=== PATIENT | male | born 1955 | race Two or more races ===

== ENCOUNTER 2017-07-31 19:37 | Inpatient (IN) | payer OTHER ==
[~2017-07-31] VITALS: Ht 175.3 cm; Wt 127.0 kg
[2017-07-31] MEDS ORDERED: VANCOMYCIN 1 GM VIAL ONE (20:23)
[2017-07-31] MEDS ORDERED: PIPERACILLIN /TAZOBACTAM 3.375 G VIAL IV ONE (20:23)
--- NOTE | 2017-07-31 20:25 | NUR ---
STARTED A SALINE LOCK ON THE LAC G20, BLOOD DRAWN AND SENT TO LAB.
--- NOTE | 2017-07-31 20:25 | NUR ---
TO BED 15 A 61 YO MALE PAIENT BBRA 102 FROM HOME; SOB, LOWER LEG SWELLING. PATIENT IS AAOX3, BREATHING EVEN AND UNLABORED. SATTING 88% ON ROOM AIR, PLACED PATIENT ON O2 CANNULA AT 4LPM AT THIS TIME WITH O2 SATURATION GOING UP TO 93-96%. KEPT HOB ELEVATED. PLACED PATIENT ON CARDIAC AND VS MONITORING. GOWNED. COMFORT MEASURES RENDERED.
[2017-07-31 20:26] LABS: BASOPHILS # (AUTO) 0.4 /CMM (0.0-0.2); BASOPHILS % (AUTO) 3.4 % (0.0-2.0); EOSINOPHILS # (AUTO) 0.1 /CMM (0.0-0.7); EOSINOPHILS % (AUTO) 0.6 % (0.0-6.0); HEMATOCRIT 53 % (39-51); LYMPHOCYTES # (AUTO) 1.2 /CMM (0.8-4.8); LYMPHOCYTES % (AUTO) 10.7 % (20.0-44.0); MEAN CORPUSCULAR HEMOGLOBIN 32 PG (26.0-33.0); MEAN CORPUSCULAR HGB CONC 34 g/dl (31.0-36.0); MEAN CORPUSCULAR VOLUME 95 fL (80-96); MONOCYTES # (AUTO) 0.9 /CMM (0.1-1.30); MONOCYTES % (AUTO) 7.5 % (2.0-12.0); NEUTROPHILS # (AUTO) 8.9 /CMM (1.8-8.9); NEUTROPHILS % (AUTO) 77.8 % (43.0-81.0); PLATELET COUNT (AUTO) 152 /CMM (150-450); RDW COEFFICIENT OF VARIATION 14.5 (11.5-15.0); RED BLOOD CELL COUNT(AUTO) 5.55 MIL/uL (4.5-6.0); WHITE BLOOD COUNT (AUTO) 11.5 K/uL (4.3-11.0)
[2017-07-31] MEDS ORDERED: PIPERACILLIN /TAZOBACTAM 3.375 G in IV D5W 50 ML IV ONE (20:30)
[2017-07-31] MEDS ORDERED: VANCOMYCIN 1 GM in IV D5W 250 ML IV ONE (20:30)
--- NOTE | 2017-07-31 20:36 | NUR ---
ONGOING DUPLEX VENOUS AT BEDSIDE.
[2017-07-31 20:43] LABS: CALCIUM, SERUM 8.5 mg/dL (8.5-10.1); POTASSIUM 4.7 mmol/L (3.5-5.1)
[2017-07-31 20:44] LABS: INR 1.3 (0.87-1.13); PROTHROMBIN TIME 13.5 SECS (9.5-12.7)
[2017-07-31 21:00] LABS: ALBUMIN 3.2 g/dL (3.4-5.0); BILIRUBIN,DIRECT 0.2 mg/dL (0.0-0.2); BILIRUBIN,TOTAL 0.6 mg/dL (0.2-1.0); TOTAL PROTEIN, SERUM 7.1 g/dL (6.4-8.2); TROPONIN I 0.925 ng/mL (0.00-0.056)
[2017-07-31] MEDS ORDERED: ASPIRIN 81 MG TAB.CHEW PO ONE (21:00)
[2017-07-31] MEDS ORDERED: ASPIRIN EC 81 MG TABLET.DR PO ONE (21:09)
--- NOTE | 2017-07-31 21:09 | NUR ---
DR.RUTHERFORD CELESTINA HEAD WRESTLING COACH
--- NOTE | 2017-07-31 21:20 | NUR ---
CALLED NURSING SUP. FOR TELE BED
[2017-07-31] MEDS ORDERED: NITROGLYCERIN PACKET 1 GM PACKET TD ONE (21:30)
[2017-07-31] MEDS ORDERED: FUROSEMIDE 40 MG/4 ML VIAL IV ONE (21:30)
[2017-07-31] MEDS ORDERED: NITROGLYCERIN PACKET 1 GM PACKET ONE (21:34)
[2017-07-31] MEDS ORDERED: FUROSEMIDE 40 MG/4 ML VIAL ONE (21:34)
[2017-07-31] MEDS ORDERED: MORPHINE SULFATE INJ 2 MG/ML DISP.SYRIN IV PRN (22:00)
[2017-07-31] MEDS ORDERED: MAG HYDROX/AL HYDROX/SIMETH 30 ML UDC PO PRN (22:00)
[2017-07-31] MEDS ORDERED: HYDROCODONE/APAP 5/325MG 1 EACH TABLET PO PRN (22:00)
[2017-07-31] MEDS ORDERED: ZOLPIDEM TARTRATE 5 MG TABLET PO PRN (22:00)
[2017-07-31] MEDS ORDERED: ACETAMINOPHEN 325 MG TABLET PO PRN (22:00)
[2017-07-31] MEDS ORDERED: MAGNESIUM HYDROXIDE 30 ML UDC PO PRN (22:00)
[2017-07-31] MEDS ORDERED: ONDANSETRON HCL/PF 4 MG/2 ML VIAL IVP PRN (22:00)
[2017-07-31] MEDS ORDERED: ENOXAPARIN SODIUM 40 MG/0.4 ML DISP.SYRIN SQ ONE (22:03)
[2017-07-31] MEDS: ENOXAPARIN SODIUM 40 MG/0.4 ML DISP.SYRIN SQ SCH (22:10)
--- NOTE | 2017-07-31 22:10 | NUR ---
LOVENOX GIVEN TO LLQ ABDOMEN; VERIFIED WITH DR GAN LOVENOX DOSE WITH PATIENT'S CREATININE LEVEL OF 2, AND HE SAID THAT "IT'S FINE. GIVE IT."
--- NOTE | 2017-07-31 22:43 | NUR ---
DR DRAPER AT BEDSIDE TO EVALUATE PATIENT.
--- NOTE | 2017-07-31 23:39 | NUR ---
REPORT GIVEN TO AKI LORENZO FOR ADMISSION AND CHINEDU.
[2017-08-01] VITALS (21 sets, daily range): BP systolic 84–126; BP diastolic 46–75
--- NOTE | 2017-08-01 00:05 | NUR ---
TRANSFERRED PATIENT TO TELE BED 315-2 VIA ALS PROTOCOL, NO INCIDENT NOTED. ENDORSED CARE TO AKI LORENZO.
--- NOTE | 2017-08-01 00:15 | NUR ---
BARN OPERATOR INITIAL NOTE PT RECEIVED FROM ED A/O X3 AND ABLE TO VERBALIZE NEEDS. SAFELY AMBULATED TO BED IN ROOM 115-2. ON 4L OF O2 AND SATURATING 94%. NOTED WITH SLIGHT SOB WHEN TRANSFERRING TO BED. DENIES CHEST PAIN OR DISCOMFORT AT THIS TIME. BREATHING EVEN AND UNLABORED. IV L AC #20 CLEAN, DRY, PATENT AND FLUSHING WELL. TELE- AFIB 107. AFEBRILE. ORIENTED TO TALIA AND UNIT. AUSCULTATED HEART, LUNG AND BOWEL SOUNDS. NOTED WITH BLE REDNESS AND EDEMA. HOB ELEVATED. CALL LIGHT WITHIN REACH. WILL CONTINUE TO MONITOR.
[2017-08-01 05:11] LABS: CALCIUM, SERUM 8.8 mg/dL (8.5-10.1); CREATININE 1.7 mg/dL (0.6-1.3); MAGNESIUM 2.2 mg/dL (1.8-2.4); PHOSPHORUS 6.7 mg/dL (2.5-4.9); POTASSIUM 4.7 mmol/L (3.5-5.1)
[2017-08-01 05:22] LABS: BASOPHILS % (AUTO) 0.1 % (0.0-2.0); EOSINOPHILS # (AUTO) 0.1 /CMM (0.0-0.7); EOSINOPHILS % (AUTO) 0.7 % (0.0-6.0); HEMATOCRIT 57 % (39-51); HEMOGLOBIN 18.6 g/dL (13.5-17.5); LYMPHOCYTES # (AUTO) 1.1 /CMM (0.8-4.8); LYMPHOCYTES % (AUTO) 9.6 % (20.0-44.0); MEAN CORPUSCULAR HEMOGLOBIN 32 PG (26.0-33.0); MEAN CORPUSCULAR HGB CONC 33 g/dl (31.0-36.0); MEAN CORPUSCULAR VOLUME 98 fL (80-96); MONOCYTES # (AUTO) 0.7 /CMM (0.1-1.30); MONOCYTES % (AUTO) 6.5 % (2.0-12.0); NEUTROPHILS # (AUTO) 9.2 /CMM (1.8-8.9); NEUTROPHILS % (AUTO) 83.1 % (43.0-81.0); PLATELET COUNT (AUTO) 153 /CMM (150-450); WHITE BLOOD COUNT (AUTO) 11.1 K/uL (4.3-11.0)
--- NOTE | 2017-08-01 07:45 | NUR ---
RELIEF DRILLER NOTES PT. IS A&OX3. TELE MONITOR READING PT. IS IN UNCONTROLLED A-FIB 135 BPM. PT. IS BREATHING LABORED ON OXYGEN AT 4L/MIN VIA NASAL CANNULA. NO S/S OF ACUTE DISTRESS. IV ACCESS ON LEFT ANTECUBITAL SITE INTACT AND PATENT. PT. HAS EDEMA PITTING IN BILATERAL LOWER EXTREMITIES. BED IS IN LOWEST, AND LOCKED POSITION. 2 SIDE RAILS UP, AND INSTRUCTED PT. TO USE CALL LIGHT FOR ASSISTANCE. ALL NEEDS MET. WILL CONTINUE TO ASSESS AND MONITOR.
[2017-08-01] MEDS ORDERED: ATOR20TA PO (08:10)
[2017-08-01] MEDS ORDERED: LISI-607 PO (08:10)
[2017-08-01] MEDS ORDERED: RIVA10TA PO (08:10)
[2017-08-01] MEDS ORDERED: FURO40TA5 PO (08:10)
[2017-08-01] MEDS ORDERED: POTA10CA68 PO (08:10)
[2017-08-01] MEDS ORDERED: METO100T14 PO (08:10)
[2017-08-01] MEDS ORDERED: METF500T4 PO (08:10)
--- NOTE | 2017-08-01 08:50 | NUR ---
RN NOTES PER MEDICAL INTERN PT.'S OXYGEN SATURATION WAS LOW. ASSESSED PT.'S OXYGENATION WAS 90%. PT.'S CONDITION CHANGED DUE TO DIFFICULTY WAKING UP, WITH GARBLED SPEECH. PT. WAS ONLY RESPONSIVE TO NAME, AND UNABLE TO VERBALIZE PLACE, AND TIME. CHARGE NURSE WAS MADE AWARE OF CHANGE IN PT.'S CONDITION. PT. IS CONTINUE TO BREATH ON OXYGEN AT 4L/MIN VIA NASAL CANNULA. WILL CONTINUE TO ASSESS AND MONITOR, AND REPORT TO MD.
[2017-08-01] MEDS ORDERED: FUROSEMIDE 40 MG/4 ML VIAL IV SCH (09:00)
--- NOTE | 2017-08-01 09:00 | NUR ---
RN NOTES REASSESSED PT. WAS ON HIS SIDE ASLEEP WITH LEFT ARM OVER THE RIGHT RAIL. PT. WAS WOKEN UP WITH DIFFICULTY AND RESPONDED TO NAME, UNABLE TO ANSWER QUESTIONS TO PLACE AND TIME. PT. WAS SEEN AND EXAMINED BY MD, NEW ORDERS GIVEN, STAT ABG'S. STAT CHEST X RAY, AND BUMEX IVP, AND DRIP.
--- NOTE | 2017-08-01 09:10 | NUR ---
RN NOTES PT.'S OXYGEN SATURATION WAS DECREASING TO 84%, WITH SOB, AND DECREASED LOC. RESPIRATORY WAS CONTACTED TO ASSESS PT.'S CONDITION.
--- NOTE | 2017-08-01 09:11 | NUR ---
RN NOTES RAPID RESPONSE CALLED. PT. OXYGEN SATURATION WAS LOW. PT.'S CONDITION AND LOC DECREASED.
--- NOTE | 2017-08-01 09:13 | NUR ---
RN NOTES BLOOD SUGAR CHECK 157 MG/DL.
--- NOTE | 2017-08-01 09:15 | NUR ---
RN NOTES RAPID RESPONSE ARRIVED. ABG' STAT COMPLETED.
--- NOTE | 2017-08-01 09:17 | NUR ---
RN NOTES PT. IS ON OXYGEN 2L/MIN SATURATION IS 96%.
[2017-08-01 09:30] LABS: ABG BASE EXCESS 7.8 mmol/L; ABG OXYGEN SATURATION 88.6 % (92.0-98.5); ABG PCO2 130.2 mmHg (35.0-45.0); ABG PH 7.147 (7.350-7.450); ABG PO2 63.7 mmHg (75.0-100.0); AaDO2 19.6 mmHg; COHb 6.8 % (0.5-1.5); MetHb 0.4 % (0.0-1.5); O2Hb 82.2 % (94.0-97.0); SITE, ABG Right Radial; VENT MODE, BG NASAL CANNULA
[2017-08-01] MEDS ORDERED: BUMETANIDE INJ 0.25 MG/ML VIAL IV ONE (09:30)
[2017-08-01] MEDS ORDERED: BUMETANIDE INJ 1 MG in IV NS 0.9% 40 ML IV ONE (09:30)
--- NOTE | 2017-08-01 09:40 | NUR ---
RN NOTES PT. WAS PLACED ON A BIPAP BY RESPIRATORY THERAPIST.
[2017-08-01] MEDS: ASPIRIN 325 MG TABLET PO SCH (09:45)
--- NOTE | 2017-08-01 09:47 | NUR ---
WELL POINT PUMPING SUPERVISOR/NOTES PT. IS ON A BIPAP MACHINE PER MD ORDERS ON A MED/SURG UNIT. CHARGE NURSE IS AWARE, AND EMERGENCY DEPARTMENT MANAGER IS AWARE.
--- NOTE | 2017-08-01 09:50 | NUR ---
RN NOTES BIPAP SETTINGS, IPAP 18, EPAP 5, RR 14 MIN., FI02 25%, NORMAL 02 SATURATION BETWEEN 88%-94%.
[2017-08-01] MEDS ORDERED: IPRATROPIUM NEB FS 0.5 MG/2.5 ML AMPUL.NEB NEB PRN (10:00)
[2017-08-01] MEDS ORDERED: methylPREDNISolone SOD SUCC 125 MG/2ML VIAL IV SCH (10:00)
[2017-08-01] MEDS ORDERED: LEVALBUTEROL HCL NEB 1.25 MG/0.5 ML VIAL.NEB NEB PRN (10:00)
--- NOTE | 2017-08-01 10:00 | NUR ---
RN NOTES YUSUF CATHETER WAS INSERTED WITHOUT COMPLICATIONS. PT. TOLERATED PROCEDURE WELL.
--- NOTE | 2017-08-01 10:02 | NUR ---
RAPID RESPONSE CALLED ON PT IN 315-2. ABG DONE. HYPERCAPNIC RESP. ACIDOSIS NOTED. PER DR. DOMINGUEZ, RESCUE BIPAP PLACED ON PT. PT IS AWAKE AND ALERT WITH SLIGHT LETHARGIC EPISODES. BETINA LORENZO IS AWARE OF BIPAP ON PT IN A TELE FLOOR, WELL NELLIE RICCI, DR. DOMINGUEZ AND TELE STERILE PROCESS TECH. Addendum: 08/01/17 at 1004 by ZEFERINO GOODRICH RT Amended: Links added.
[2017-08-01] MEDS ORDERED: ALBUTEROL FS 2.5 MG/0.5 ML VIAL.NEB NEB PRN (11:00)
[2017-08-01] MEDS: PIPERACILLIN /TAZOBACTAM 3.375 G in IV D5W 50 ML IV SCH ×2 (11:57→18:52)
--- NOTE | 2017-08-01 14:15 | NUR ---
RN NOTES YUSUF CATHETER OUTPUT 550 CC OF CLEAR, AND YELLOW URINE.
--- NOTE | 2017-08-01 14:15 | NUR ---
RN NOTES REPORT WAS GIVEN TO BJ REINOSO IN ICU.
--- NOTE | 2017-08-01 14:40 | NUR ---
TOOL MARKER NOTES RECEIVED PATIENT AOX3 , CURRENTLY ON BIPAP FIO2 25% R 14 18/5 SPO2 OF 90% , AFIB 115 ON BEDSIDE MONITOR , FC DRAINING WELL VIA GRAVITY WITH CLEAR YELLOW URINE , IV OF L AC # 20 PATENT AND INTACT SL , ALL NEEDS ATTENDED , BED ON LOW AND LOCKED POSITION , SIDE RAILS X2 , CALL LIGHT WITHIN REACH , HOB @ 35 WILL CONTINUE TO MONITOR
--- NOTE | 2017-08-01 14:49 | NUR ---
RN NOTES TRANSFER TO ICU REPORT WAS GIVEN TO BJ REINOSO. PLACED PT. ON TELE MONITOR, AND OXYGEN. PT. WAS TAKEN TO ICU WITH RESPIRATORY THERAPIST, AND FIRE FIGHTING EQUIPMENT SPECIALIST WITHOUT COMPLICATIONS.
--- NOTE | 2017-08-01 14:50 | NUR ---
ANVIL SEATING PRESS OPERATOR NOTES ASKED BETINA LORENZO TO CALL PRIMARY PHYSICIAN TO REVIEW MEDICATION RECON , RN AWARE
[2017-08-01] MEDS: FUROSEMIDE 40 MG/4 ML VIAL IV SCH ×2 (15:21→23:17)
[2017-08-01] MEDS: METOPROLOL TARTRATE 50 MG TABLET PO SCH ×2 (15:22→23:18)
[2017-08-01] MEDS: methylPREDNISolone SOD SUCC 125 MG/2ML VIAL IV SCH ×2 (15:38→21:05)
--- NOTE | 2017-08-01 16:00 | NUR ---
MACHINE HEEL SPRAYER NOTES VERIFIED WITH DR SKINNER IF LASIX 60MG OK TO GIVE PT RECEIVED BUMEX IVP AND DRIP @ 3 WEST PER MD OK TO GIVE LASIX ORDERED , F/U HOME MEDS TO REVIEW AND CONTINUE , AWARE
[2017-08-01 17:26] LABS: ABG OXYGEN SATURATION 90.7 % (92.0-98.5); ABG PCO2 82.8 mmHg (35.0-45.0); ABG PH 7.314 (7.350-7.450); ABG PO2 60.8 mmHg (75.0-100.0); AaDO2 55.8 mmHg; COHb 5.4 % (0.5-1.5); MetHb 0.4 % (0.0-1.5); O2Hb 85.4 % (94.0-97.0); PEEP,BG 5 cm H2O; SITE, ABG Right Radial
[2017-08-01] MEDS: ALBUTEROL FS 2.5 MG/0.5 ML VIAL.NEB NEB SCH ×2 (17:27→22:50)
[2017-08-01] MEDS: IPRATROPIUM NEB FS 0.5 MG/2.5 ML AMPUL.NEB NEB SCH ×2 (17:27→22:49)
--- NOTE | 2017-08-01 17:30 | NUR ---
LIMOUSINE AND HEARSE UPHOLSTERER NOTES SEEN AND EVALUATED BY DR CORONA , DISCUSSED HISTORY , DIAGNOSIS , CURRENT BIPAP SETTINGS AND CHIEF COMPLAIN LABS , ABG ON NASAL CANNULA , PENDING CHEST XRAY RESULT , PT AFEBRILE WITH STABLE BP , MD AWARE , AWAITING FOR ORDERS
[2017-08-01] MEDS: GABAPENTIN 100 MG CAPSULE PO SCH (17:46)
--- NOTE | 2017-08-01 20:00 | NUR ---
Received patient A/O X 3.VS stable.Afib controlled 80's-90's.Respiration even and unlabored with sob on exertion.Desat to 88%.On BIPAP rate 14,18/5 and FIO2 30%.Clear breath sounds on auscultation.HOB elevated.Bilateral lower extremities swollen and both elevated on pillows.Turned and repositioned to Comfort.FC to gravity with moderate clear yellow urine.Denies pain.Safety measures implemented.Call light within easy reach.
[2017-08-01] MEDS: ATORVASTATIN 40 MG TABLET PO SCH (22:08)
[2017-08-01] MEDS: ENOXAPARIN SODIUM 40 MG/0.4 ML DISP.SYRIN SQ SCH (22:09)
[2017-08-02] VITALS (34 sets, daily range): BP systolic 94–136; BP diastolic 27–75
--- NOTE | 2017-08-02 | NUR ---
Patient resting desat to 78%.No acute distress noted.RT,Bakari increased FIO2 to 40 %. Continue to monitor.
[2017-08-02] MEDS: PIPERACILLIN /TAZOBACTAM 3.375 G in IV D5W 50 ML IV SCH ×5 (00:02→23:56)
[2017-08-02 05:42] LABS: PHOSPHORUS 5.6 mg/dL (2.5-4.9)
[2017-08-02 05:43] LABS: CALCIUM, SERUM 8.6 mg/dL (8.5-10.1); CREATININE 1.5 mg/dL (0.6-1.3); POTASSIUM 4.6 mmol/L (3.5-5.1)
--- NOTE | 2017-08-02 06:15 | NUR ---
Patient resting VS stable.Afib 102-105.O2 saturation fluactuating from 88%-93% while on Bipap. No acute distress noted.Bed bath rendered and complete linens changed.all need met.Safety measures maintained.Call light at bedside.
--- NOTE | 2017-08-02 07:10 | NUR ---
DIAGNOSTICS TECH NOTES RECEIVED PATIENT AOX3 , CURRENTLY ON BIPAP FIO2 40% R 14 18/ SPO2 OF 95% , AFIB 108 ON BEDSIDE MONITOR , FC DRAINING WELL VIA GRAVITY WITH CLEAR YELLOW URINE , IV OF L AC # 20 L WRIST # 20 PATENT AND INTACT WITH NS @ TKO , ALL NEEDS ATTENDED , BED ON LOW AND LOCKED POSITION , SIDE RAILS X2 , CALL LIGHT WITHIN REACH , HOB @ 35 WILL CONTINUE TO MONITOR
[2017-08-02] MEDS: ALBUTEROL FS 2.5 MG/0.5 ML VIAL.NEB NEB SCH ×3 (07:37→23:30)
[2017-08-02] MEDS: IPRATROPIUM NEB FS 0.5 MG/2.5 ML AMPUL.NEB NEB SCH ×3 (07:38→23:29)
--- NOTE | 2017-08-02 07:43 | NUR ---
RT RECEIVED PT ON BIPAP, PLACED PT ON N/C DUE TO MD WEANING ORDERS, AMBUBAG AT BEDSIDE, PLACED ON 4LPM, PT STABLE WILL MONITOR CLOSELY Addendum: 08/02/17 at 1628 by FERMIN RICE RT Amended: Links added.
[2017-08-02] MEDS: FUROSEMIDE 40 MG/4 ML VIAL IV SCH ×3 (07:48→17:59)
--- NOTE | 2017-08-02 08:05 | NUR ---
RT PLACED PT ON NC WITH 4 LPM PER MD ORDER. WILL MONITOR THE PATIENT CLOSELY FOR ANY CHANGE OF CONDITION. BJ ELLER NOTIFIED AND AWARE.
--- NOTE | 2017-08-02 08:13 | NUR ---
CAPSULE FILLING MACHINE OPERATOR NOTES LASIX 60 MG NON ADMIN , DR SKINNER CHANGED THE DOSE TO 40MG .
[2017-08-02] MEDS: GABAPENTIN 100 MG CAPSULE PO SCH ×3 (08:14→18:00)
[2017-08-02] MEDS: methylPREDNISolone SOD SUCC 125 MG/2ML VIAL IV SCH ×3 (08:14→17:59)
[2017-08-02] MEDS: ASPIRIN 325 MG TABLET PO SCH (08:15)
[2017-08-02] MEDS: METOPROLOL TARTRATE 50 MG TABLET PO SCH ×2 (08:15→21:25)
--- NOTE | 2017-08-02 08:44 | NUR ---
BABYSITTER NOTES SEEN AND EVALUATED BY DR CORONA , DISCUSSED LABS , CHEST XRAY , PT OFF BIPAP SINCE 0800 , PENDING ABG RESULT , AFIB UNCONTROLLED 118 , URINE OUTPUT TOTAL OF 2600ML , AWARE
--- NOTE | 2017-08-02 09:00 | NUR ---
GLOVE PRESSER NOTES RELAYED ABG RESULT TO DR CORONA , PER MD REPEAT ABG AFTER 2 HOURS .
[2017-08-02 09:12] LABS: ABG BASE EXCESS 10.7 mmol/L; ABG OXYGEN SATURATION 89.2 % (92.0-98.5); ABG PCO2 81.5 mmHg (35.0-45.0); ABG PH 7.325 (7.350-7.450); ABG PO2 60.3 mmHg (75.0-100.0); AaDO2 101.8 mmHg; COHb 3.1 % (0.5-1.5); MetHb 0.5 % (0.0-1.5); SITE, ABG Right Radial; VENT MODE, BG N/C 36%
--- NOTE | 2017-08-02 11:30 | NUR ---
PUBLICITY CONSULTANT NOTES SEEN AND EVALUATED BY DR DOMINGUEZ , DISCUSSED LABS , CHEST XRAY AND ABG RESULT , CURRENTLY OFF BIPAP , PT ON 4LPM NC SPO2 OF 92% WITH NO SIGNS OF DISTRESS , AOX3 , AFEBRILE , V/S STABLE , PT COMPLAINS THAT HIS ABDOMEN IS GETTING BIGGER , PER MD ORDER ABDOMINAL KUB , ORDERS CARRIED OUT
[2017-08-02 11:51] LABS: ABG BASE EXCESS 10.6 mmol/L; ABG PCO2 93.8 mmHg (35.0-45.0); ABG PH 7.279 (7.350-7.450); ABG PO2 75.9 mmHg (75.0-100.0); COHb 2.3 % (0.5-1.5); MetHb 0.6 % (0.0-1.5); O2Hb 90.3 % (94.0-97.0); SITE, ABG Right Radial; VENT MODE, BG N/C
--- NOTE | 2017-08-02 11:54 | NUR ---
RANGE RIDER NOTES RELAYED ABG RESULT TO DR CORONA , ORDERED TO DECREASE NC FROM 4LPM TO 2LPM AND REPEAT ABG @ 1500 , PLACE PT ON BIPAP IF AMS / DISTRESS / ORDERS CARRIED OUT
--- NOTE | 2017-08-02 11:56 | NUR ---
RT ABG DONE PER MD ORDER. RESULTS SHOWN TO RAFITA LORENZO. PLACED PT ON 2LPM VIA N/C PER MD ORDER. WILL CONTINUE TO MONITOR THE PATIENT CLOSELY.
--- NOTE | 2017-08-02 14:00 | NUR ---
CHILD CAREGIVER PRIVATE HOME NOTES RT RELAYED ABG RESULT TO DR CORONA , ORDERED TO PLACE PT ON BIPAP R 12 20/5 TITRATE FIO2 TO KEEP SPO2 90-92% AND ABG AFTER 2 HOURS . ORDERS CARRIED OUT
[2017-08-02 15:48] LABS: ABG BASE EXCESS 10.4 mmol/L; ABG OXYGEN SATURATION 92.4 % (92.0-98.5); ABG PCO2 104.8 mmHg (35.0-45.0); ABG PH 7.241 (7.350-7.450); ABG PO2 72.8 mmHg (75.0-100.0); AaDO2 3.2 mmHg; COHb 2.6 % (0.5-1.5); MetHb 0.5 % (0.0-1.5); O2Hb 89.5 % (94.0-97.0); SITE, ABG Right Radial; VENT MODE, BG NC 28%
--- NOTE | 2017-08-02 15:57 | NUR ---
RT ABG RESULTS SHOWN TO DR. CORONA, AT THIS TIME PT WAS PLACED ON BIBAP, WITH SETTINGS OF 20/5 BACKUP RATE 12, FIO2 30%, PER MD ORDERS. NO DISTRESS NOTED AT THIS TIME, RN NOTIFIED AND AWARE OF THESE CHANGES Addendum: 08/02/17 at 1600 by FERMIN RICE RT Amended: Links added.
[2017-08-02] MEDS: Z GUARD REMEDY 2 OZ OINT TP PRN (18:00)
[2017-08-02 18:14] LABS: ABG BASE EXCESS 12.7 mmol/L; ABG OXYGEN SATURATION 89.2 % (92.0-98.5); ABG PCO2 78.3 mmHg (35.0-45.0); ABG PH 7.358 (7.350-7.450); ABG PO2 57.7 mmHg (75.0-100.0); AaDO2 100.8 mmHg; COHb 2.2 % (0.5-1.5); MetHb 0.6 % (0.0-1.5); O2Hb 86.7 % (94.0-97.0); SITE, ABG Right Radial; VENT MODE, BG S/T 20/5 BUR12 35%
--- NOTE | 2017-08-02 18:15 | NUR ---
BLENDING OPERATOR NOTES RELAYED ABG RESULT WITH DR CORONA VIA BIPAP WITH SETTINGS OF R 12 , FIO2 30% 20/ 5 PER MD NO CHANGE , CONTINUE BIPAP AND CHECK ABG REJI AM WITH BIPAP ,
--- NOTE | 2017-08-02 18:42 | NUR ---
RT INCREASED HIS FIO2 TO 35% DUE TO DESATURATION, IN THE LOW 78-82%. PT IS AWAKE, ALERT, AND VERBALIZES HIS NEEDS. PT STATES NOT HAVING ANY DISTRESS AT THIS TIME, NOTIFIED BJ REINOSO Addendum: 08/02/17 at 1845 by FERMIN RICE RT Amended: Links added.
--- NOTE | 2017-08-02 19:30 | NUR ---
Received patient asleep easily awakened desat to 87%.RT,DEBBI at bedside and increased FIO2 to 50%. SPO2 went up to 91%.No respiratory distress noted.Respiration even and unlabored.VS stable.A-fib 102-105. FC draining clear yellow urine.Both lower extremities red and swollen kept elevated on pillows.Continue monitoring.
[2017-08-02] MEDS: ATORVASTATIN 40 MG TABLET PO SCH (21:24)
[2017-08-02] MEDS: ENOXAPARIN SODIUM 40 MG/0.4 ML DISP.SYRIN SQ SCH (21:26)
[2017-08-03] VITALS (25 sets, daily range): BP systolic 95–139; BP diastolic 50–81
[2017-08-03] MEDS: PIPERACILLIN /TAZOBACTAM 3.375 G in IV D5W 50 ML IV SCH ×4 (05:17→23:40)
[2017-08-03 05:23] LABS: BASOPHILS % (AUTO) 0.2 % (0.0-2.0); HEMATOCRIT 51 % (39-51); HEMOGLOBIN 17.1 g/dL (13.5-17.5); LYMPHOCYTES # (AUTO) 0.4 /CMM (0.8-4.8); LYMPHOCYTES % (AUTO) 3.5 % (20.0-44.0); MEAN CORPUSCULAR HEMOGLOBIN 33 PG (26.0-33.0); MEAN CORPUSCULAR HGB CONC 34 g/dl (31.0-36.0); MEAN CORPUSCULAR VOLUME 96 fL (80-96); MONOCYTES # (AUTO) 0.7 /CMM (0.1-1.30); MONOCYTES % (AUTO) 5.6 % (2.0-12.0); NEUTROPHILS # (AUTO) 11.2 /CMM (1.8-8.9); NEUTROPHILS % (AUTO) 90.7 % (43.0-81.0); PLATELET COUNT (AUTO) 133 /CMM (150-450); RDW COEFFICIENT OF VARIATION 13.9 (11.5-15.0); RED BLOOD CELL COUNT(AUTO) 5.27 MIL/uL (4.5-6.0); WHITE BLOOD COUNT (AUTO) 12.3 K/uL (4.3-11.0)
[2017-08-03 06:01] LABS: CALCIUM, SERUM 8.4 mg/dL (8.5-10.1); CREATININE 1.4 mg/dL (0.6-1.3); MAGNESIUM 1.7 mg/dL (1.8-2.4); PHOSPHORUS 3.9 mg/dL (2.5-4.9); POTASSIUM 4.9 mmol/L (3.5-5.1)
--- NOTE | 2017-08-03 06:48 | NUR ---
Patient resting verbalized feeling much better.All needs met.VS remains stable.Bipap now at 40% FIO2 saturation 90%-97% .No acute distress noted all throughout the night.
--- NOTE | 2017-08-03 07:12 | NUR ---
RN INITIAL NOTES: REC'D PT AWAKE ON BED, NO IN ANY DISTRESS, A/O X 4, DENIES ANY PAIN/DISCOMFORT. ON BIPAP, SATING AT 96%. ON TELEMONITOR, NOTED UNCONTROLLED/CONTROLLED AFIB. HAS 2 IV LINE ACCESS - L AC G20, SL PATENT & INTACT W/ NO S/SX OF INFECTION/INFILTRATION NOTED; L WRIST G20, SL NOT FLUSHING WELL, REMOVED. HAS FC PATENT & INTACT. PROVIDED COMFORT & SAFETY MEASURES. BED KEPT LOW & IN LOCKED POS. CALL LIGHT PLACED W/IN REACH. WILL CONTINUE TO MONITOR AND ATTEND PT NEEDS.
--- NOTE | 2017-08-03 08:15 | NUR ---
RT NOTE: LATE ENTRY-ALERT PATIENT OFF BIPAP WITH NO SOB NOTED. WILL CONTINUE TO MONITOR.
--- NOTE | 2017-08-03 08:30 | NUR ---
RN NOTES: PT SEEN & EXAMINED BY DR. CORONA WHILE OFF BIPAP.
[2017-08-03] MEDS: ALBUTEROL FS 2.5 MG/0.5 ML VIAL.NEB NEB SCH ×3 (08:31→23:26)
[2017-08-03] MEDS: IPRATROPIUM NEB FS 0.5 MG/2.5 ML AMPUL.NEB NEB SCH ×3 (08:31→23:25)
[2017-08-03] MEDS: FUROSEMIDE 40 MG/4 ML VIAL IV SCH ×2 (08:40→17:16)
[2017-08-03] MEDS: methylPREDNISolone SOD SUCC 125 MG/2ML VIAL IV SCH ×3 (08:41→17:16)
[2017-08-03] MEDS: ASPIRIN 325 MG TABLET PO SCH (08:41)
[2017-08-03] MEDS: GABAPENTIN 100 MG CAPSULE PO SCH ×3 (08:41→17:17)
[2017-08-03] MEDS: Z GUARD REMEDY 2 OZ OINT TP PRN (08:42)
[2017-08-03] MEDS: METOPROLOL TARTRATE 50 MG TABLET PO SCH ×2 (08:44→17:17)
--- NOTE | 2017-08-03 09:15 | NUR ---
RN NOTES: PT SEEN & EXAMINED BY DR. DOMINGUEZ.
[2017-08-03 09:50] LABS: ABG OXYGEN SATURATION 89.4 % (92.0-98.5); ABG PCO2 70.4 mmHg (35.0-45.0); ABG PH 7.395 (7.350-7.450); ABG PO2 59.9 mmHg (75.0-100.0); AaDO2 56.7 mmHg; COHb 1.4 % (0.5-1.5); MetHb 0.4 % (0.0-1.5); O2Hb 87.8 % (94.0-97.0); SITE, ABG Right Radial; VENT MODE, BG 2L NC
--- NOTE | 2017-08-03 13:00 | NUR ---
RN NOTES: DR. CORONA SEEN & EXAMINED AGAIN THE PT WHILE ON O2 AT NC 2LPM, ORDERED TO DO ANOTHER ABG AT 2PM. RT MADE AWARE. 1430h ABG RESULTS SEEN BY DR. CORONA W/ ORDERS TO TRANSFER PT OUT OF ICU TO [facility] STATUS. AWAITING FOR BED. PT AND AWARE.
[2017-08-03] MEDS: Magnesium 1GM/D5W 100ML PREMIX 100 ML IV SCH ×2 (13:34→14:31)
[2017-08-03 14:33] LABS: ABG BASE EXCESS 13.3 mmol/L; ABG OXYGEN SATURATION 91.8 % (92.0-98.5); ABG PCO2 70.4 mmHg (35.0-45.0); ABG PH 7.398 (7.350-7.450); ABG PO2 65.7 mmHg (75.0-100.0); AaDO2 50.9 mmHg; COHb 1.1 % (0.5-1.5); MetHb 0.5 % (0.0-1.5); O2Hb 90.3 % (94.0-97.0); SITE, ABG Right Radial; VENT MODE, BG NASAL CANNULA
--- NOTE | 2017-08-03 18:30 | NUR ---
CITY RECORDER NOTES: PT TRANSFERRED OUT OF ICU VIA WHEELCHAIR (VIA ACLS PROTOCOL) ACCOMPANIED BY 2 ICU RNS, NOT IN ANY FORM OF DISTRESS, A/O X4. PT PLACED ON ROOM 120/1, ORIENTED TO NEW ROOM. CALL LIGHT PLACED W/IN REACH. IV LINE ACCESS KEPT PATENT & INTACT W/ NO S/SX OF INFECTION/INFILTRATION NOTED. FC ALSO KEPT PATENT & INTACT DRAINING TO ADEQUATE URINE OUTPUT. REPORT GIVEN TO WAYNE LORENZO FOR CHINEDU. NO CONCERN IDENTIFIED AT THIS TIME.
--- NOTE | 2017-08-03 20:00 | NUR ---
qian rn notes received pts and report from specialist icu cece, pts is a/ox4 Italian /Anguillan speaking, on tele monitor afib on the monitor, no sob no distress noted no c/o of pain at of this time.on 2 liters of o2 via nc sating 90-93% breathing tx given by rt as ordered , all due meds given as ordered, with no ase noted .midline on doni intact and patent , .all needs attended too call light within reach ,with f/c intact and patent draining with yellowish urine output.kept ptss clean dry and comfortable.
[2017-08-03] MEDS: ATORVASTATIN 40 MG TABLET PO SCH (21:09)
[2017-08-03] MEDS: ENOXAPARIN SODIUM 40 MG/0.4 ML DISP.SYRIN SQ SCH (21:15)
[2017-08-04] VITALS: BP 122/74
[2017-08-04] MEDS: METOPROLOL TARTRATE 50 MG TABLET PO SCH ×3 (01:23→16:53)
[2017-08-04 04:00] VITALS: BP 114/61
[2017-08-04] MEDS: PIPERACILLIN /TAZOBACTAM 3.375 G in IV D5W 50 ML IV SCH ×4 (05:22→23:37)
--- NOTE | 2017-08-04 05:56 | NUR ---
CARLI RN NOTES PTS ON BED A/O X4 NO SIGNIFICANT CHANGE NOTED V/S STABLE AFEBRILE WILL ENDORSE TO RN DAY SHIFT FOR CONTINUITY OF CARE.
[2017-08-04 06:49] LABS: HEMATOCRIT 55 % (39-51); HEMOGLOBIN 17.7 g/dL (13.5-17.5); LYMPHOCYTES # (AUTO) 0.4 /CMM (0.8-4.8); LYMPHOCYTES % (AUTO) 3.8 % (20.0-44.0); MEAN CORPUSCULAR HEMOGLOBIN 32 PG (26.0-33.0); MEAN CORPUSCULAR HGB CONC 32 g/dl (31.0-36.0); MEAN CORPUSCULAR VOLUME 98 fL (80-96); MONOCYTES # (AUTO) 0.7 /CMM (0.1-1.30); MONOCYTES % (AUTO) 6.3 % (2.0-12.0); NEUTROPHILS % (AUTO) 89.9 % (43.0-81.0); PLATELET COUNT (AUTO) 118 /CMM (150-450); RDW COEFFICIENT OF VARIATION 14.8 (11.5-15.0); RED BLOOD CELL COUNT(AUTO) 5.57 MIL/uL (4.5-6.0); WHITE BLOOD COUNT (AUTO) 11.1 K/uL (4.3-11.0)
[2017-08-04 07:24] LABS: CALCIUM, SERUM 8.7 mg/dL (8.5-10.1); CREATININE 1.2 mg/dL (0.6-1.3); PHOSPHORUS 4.2 mg/dL (2.5-4.9); POTASSIUM 3.9 mmol/L (3.5-5.1)
[2017-08-04 08:00] VITALS: BP 130/67
[2017-08-04] MEDS: IPRATROPIUM NEB FS 0.5 MG/2.5 ML AMPUL.NEB NEB SCH ×2 (08:18→15:31)
[2017-08-04] MEDS: ALBUTEROL FS 2.5 MG/0.5 ML VIAL.NEB NEB SCH ×2 (08:19→15:31)
[2017-08-04] MEDS: GABAPENTIN 100 MG CAPSULE PO SCH ×3 (08:50→16:53)
[2017-08-04] MEDS: methylPREDNISolone SOD SUCC 125 MG/2ML VIAL IV SCH ×3 (08:50→16:57)
[2017-08-04] MEDS: FUROSEMIDE 40 MG/4 ML VIAL IV SCH ×2 (08:50→16:55)
[2017-08-04] MEDS: ASPIRIN 325 MG TABLET PO SCH (08:51)
[2017-08-04 12:00] VITALS: BP 124/65
[2017-08-04 16:00] VITALS: BP 118/63
--- NOTE | 2017-08-04 17:49 | NUR ---
RT PATIENT REFUSED ABG T/O SHIFT. NO SOB NOTED. PATIENT STABLE ON 28% NASAL CANNULA.
--- NOTE | 2017-08-04 19:40 | NUR ---
RN NOTE; NO ANY DISTRESS NOTED DURING THE SHIFT. ALL PRESCRIBED MEDS TOLERATED WELL . DENIED ANY PAIN . ENDORSE TO NEXT SHIFT RN FOR CONTINUITY OF CARE .
[2017-08-04 20:00] VITALS: BP 141/77
--- NOTE | 2017-08-04 20:04 | NUR ---
TELE1 RN NOTES RECEIVED ON BED A/O X3,SPEAK MEXICAN,ABLE TO UNDERSTAND GERMAN.SALINE LOCK LEFT AC INTACT AND PATENT.NOTED BILATERAL LOWER EXTREMITIES REDNESS AND EDEMATOUS.WITH RIGHT UPPER ARM MIDLINE FOR MEDS.CALL LIGHT IN REACH,NEEDS ANTICIPATED.
[2017-08-04] MEDS: ATORVASTATIN 40 MG TABLET PO SCH (22:09)
[2017-08-04] MEDS: ENOXAPARIN SODIUM 40 MG/0.4 ML DISP.SYRIN SQ SCH (22:11)
[2017-08-05] VITALS: BP 134/75
[2017-08-05] MEDS: IPRATROPIUM NEB FS 0.5 MG/2.5 ML AMPUL.NEB NEB SCH ×4 (00:16→23:10)
[2017-08-05] MEDS: ALBUTEROL FS 2.5 MG/0.5 ML VIAL.NEB NEB SCH ×4 (00:16→23:10)
[2017-08-05] MEDS: METOPROLOL TARTRATE 50 MG TABLET PO SCH ×3 (01:31→16:41)
[2017-08-05 04:00] VITALS: BP 126/55
[2017-08-05] MEDS: PIPERACILLIN /TAZOBACTAM 3.375 G in IV D5W 50 ML IV SCH ×4 (05:24→23:11)
--- NOTE | 2017-08-05 06:52 | NUR ---
TELE 1 RN NOTES NO SIGNIFICANT CHANGED IN STATUS.ABLE TO VERBALIZED NEED.VITALS WITH IN NORMAL LIMITS,IV ABX TOLERATED WELL.IN NO ACUTE DISTRESS.WILL ENDORSE TO DAY NURSE FOR CHINEDU.
[2017-08-05 07:34] LABS: CALCIUM, SERUM 8.7 mg/dL (8.5-10.1); CREATININE 1.1 mg/dL (0.6-1.3); PHOSPHORUS 4.6 mg/dL (2.5-4.9); POTASSIUM 4.1 mmol/L (3.5-5.1)
[2017-08-05 07:44] LABS: BASOPHILS % (AUTO) 0.1 % (0.0-2.0); EOSINOPHILS % (AUTO) 0.2 % (0.0-6.0); HEMATOCRIT 53 % (39-51); HEMOGLOBIN 17.4 g/dL (13.5-17.5); LYMPHOCYTES # (AUTO) 0.4 /CMM (0.8-4.8); LYMPHOCYTES % (AUTO) 3.6 % (20.0-44.0); MEAN CORPUSCULAR HEMOGLOBIN 32 PG (26.0-33.0); MEAN CORPUSCULAR HGB CONC 33 g/dl (31.0-36.0); MEAN CORPUSCULAR VOLUME 99 fL (80-96); MONOCYTES # (AUTO) 0.6 /CMM (0.1-1.30); MONOCYTES % (AUTO) 5.8 % (2.0-12.0); NEUTROPHILS # (AUTO) 8.9 /CMM (1.8-8.9); NEUTROPHILS % (AUTO) 90.3 % (43.0-81.0); PLATELET COUNT (AUTO) 111 /CMM (150-450); RDW COEFFICIENT OF VARIATION 14.6 (11.5-15.0); RED BLOOD CELL COUNT(AUTO) 5.39 MIL/uL (4.5-6.0); WHITE BLOOD COUNT (AUTO) 9.8 K/uL (4.3-11.0)
--- NOTE | 2017-08-05 07:46 | NUR ---
LINE TESTER NOTES RECEIVED ON BED A/O X3,SPEAK ISRAELI,ABLE TO UNDERSTAND SALVADOREAN.RT UPPER ARM MID LINE IN PLCE NO S\S INFECTION NOTED , ON 2L NC SAT 92% ,BED IN LOWEST AND LOCKED POSITION AND PATENT.NOTED BILATERAL LOWER EXTREMITIES REDNESS AND EDEMATOUS.CALL LIGHT IN REACH,ALL NEEDS ANTICIPATED TRANSFERRED TO ROOM 113 BED PER HIS RETEST, WITH YUSUF CATH TO GRAVITY WITH BLOODY URINE NOTED , WILL CONT TO MONITOR CLOSELY, .
[2017-08-05 08:00] VITALS: BP 118/65
[2017-08-05] MEDS: GABAPENTIN 100 MG CAPSULE PO SCH ×3 (09:27→16:40)
[2017-08-05] MEDS: ASPIRIN 325 MG TABLET PO SCH (09:27)
[2017-08-05] MEDS: methylPREDNISolone SOD SUCC 125 MG/2ML VIAL IV SCH ×3 (09:29→16:40)
[2017-08-05] MEDS: FUROSEMIDE 40 MG/4 ML VIAL IV SCH (09:30)
--- NOTE | 2017-08-05 11:12 | NUR ---
LINK FABRIC MACHINE OPERATOR NOTE SEEN BY DR VILLAGOMEZ STATE WITH DRYLAND FARMER ITS OK TO GO HOME IF OK T
--- NOTE | 2017-08-05 11:18 | NUR ---
DIAL MAKER NOTE PER DR DONNA LAUREANO ON RA, WILL F\U
[2017-08-05 12:00] VITALS: BP 118/65
[2017-08-05 12:32] LABS: ABG BASE EXCESS 15.8 mmol/L; ABG OXYGEN SATURATION 76.5 % (92.0-98.5); ABG PCO2 89.5 mmHg (35.0-45.0); ABG PH 7.343 (7.350-7.450); ABG PO2 41.7 mmHg (75.0-100.0); AaDO2 0.9 mmHg; COHb 1.7 % (0.5-1.5); MetHb 0.4 % (0.0-1.5); O2Hb 74.9 % (94.0-97.0); SITE, ABG Right Radial; VENT MODE, BG ROOM AIR
--- NOTE | 2017-08-05 13:13 | NUR ---
HOT PRESS OPERATOR NNOTE PER DR GILBERTO LAUREANO DONE SPOKE WITH LILY REGISTRY RN WILL WORK ON O2 ARRANGEMENT FOR TOMORROW AT HOME ,SAT ON RA 83%
--- NOTE | 2017-08-05 15:00 | NUR ---
OVERCOIL STEPPER NOTE PER DR VERDE NPO AFTER MID NIGHT , AND CONT ON HEPARIN ALEX , Addendum: 08/05/17 at 1554 by JENNYFER GRIMALDO RN AIDA COTE
--- NOTE | 2017-08-05 15:45 | NUR ---
TOOTH GRINDER NOTE YUSUF CATH REMOVED ORDERED 500 ML URINATED WILL MONITOR FOR VOIDING
[2017-08-05 16:00] VITALS: BP 118/65
[2017-08-05] MEDS: BUMETANIDE (1 MG) 1 MG TABLET PO SCH (16:40)
--- NOTE | 2017-08-05 18:06 | NUR ---
RN OPERATING ROOM NOTE HAVING DINNER , STILL UNABLE TO URINATE WELL YET ,WILL F\U
--- NOTE | 2017-08-05 18:37 | NUR ---
ORCHID WORKER NOTE PER DR BENTLEY OK TO GO HOME BUT PER PULMONARY NEED O2 AT HOME ,LILY ARAMBULA MANGER AWARE STATED THAT WILL ARRANGE TOMORROW
[2017-08-05 20:00] VITALS: BP_SYST 114; BP_SYST 132; BP_DIAS 63; BP_DIAS 74
--- NOTE | 2017-08-05 20:00 | NUR ---
RN INITIAL NOTES RECEIVED ON BED A/O X3,SPEAK BULGARIAN,ABLE TO UNDERSTAND FAROESE.SALINE LOCK LEFT AC INTACT AND PATENT.NOTED BILATERAL LOWER EXTREMITIES REDNESS AND EDEMATOUS.WITH RIGHT UPPER ARM MIDLINE FOR MEDS.BED LOCKED IN THE LOWEST POSITION. CALL LIGHT IN REACH,PT REPORTED 1ST VOID SINCE YUSUF WAS REMOVED. WILL CONTINUE TO MONITOR .
[2017-08-05] MEDS: ENOXAPARIN SODIUM 40 MG/0.4 ML DISP.SYRIN SQ SCH (22:39)
[2017-08-05] MEDS: ATORVASTATIN 40 MG TABLET PO SCH (22:40)
[2017-08-06] VITALS: BP 132/58
[2017-08-06] MEDS: METOPROLOL TARTRATE 50 MG TABLET PO SCH ×3 (00:50→17:38)
[2017-08-06 04:00] VITALS: BP 112/56
[2017-08-06] MEDS: PIPERACILLIN /TAZOBACTAM 3.375 G in IV D5W 50 ML IV SCH ×3 (05:11→17:39)
--- NOTE | 2017-08-06 06:27 | NUR ---
RN CLOSING NOTES PT ON BED A/O X3,SPEAK HEBREW,ABLE TO UNDERSTAND TURKMEN.SALINE LOCK LEFT AC INTACT AND PATENT.NOTED BILATERAL LOWER EXTREMITIES REDNESS AND EDEMATOUS.WITH RIGHT UPPER ARM MIDLINE FOR MEDS.BED LOCKED IN THE LOWEST POSITION. CALL LIGHT IN REACH. WILL ENDORSE TO AM RN.
[2017-08-06] MEDS: IPRATROPIUM NEB FS 0.5 MG/2.5 ML AMPUL.NEB NEB SCH ×3 (07:37→23:39)
[2017-08-06] MEDS: ALBUTEROL FS 2.5 MG/0.5 ML VIAL.NEB NEB SCH ×3 (07:37→23:39)
[2017-08-06 08:00] VITALS: BP 130/72
--- NOTE | 2017-08-06 08:01 | NUR ---
RESET MERCHANDISER NOTES RECEIVED PT ON BED AWAKE. A/OX4. ON ROOM AIR TOLERATING WELL. NO SIGN OF RESPIRATORY DISTRESS.IV ACCESS ON SUKUMAR MIDLINE NO SIGN OF PAIN OR REDNESS. HEAD OF BED ELEVATED. SIDE RAILS UP. WILL CONTINUE TO MONITOR PT CLOSELY.
[2017-08-06] MEDS: BUMETANIDE (1 MG) 1 MG TABLET PO SCH ×2 (08:39→17:37)
[2017-08-06] MEDS: ASPIRIN 325 MG TABLET PO SCH (08:39)
[2017-08-06] MEDS: GABAPENTIN 100 MG CAPSULE PO SCH ×3 (08:40→17:37)
[2017-08-06] MEDS: methylPREDNISolone SOD SUCC 125 MG/2ML VIAL IV SCH ×3 (08:40→17:37)
[2017-08-06] MEDS: DILTIAZEM HCL CD 120 MG PO SCH (10:09)
[2017-08-06 12:00] VITALS: BP 119/75
[2017-08-06 16:00] VITALS: BP 119/63
--- NOTE | 2017-08-06 19:30 | NUR ---
RN INITIAL NOTES RECEIVED PATIENT IN BED, AWAKE, ALERT AND ORIENTED X4. PATIENT ASSISTED TO BEDSIDE COMMODE, STEADY WITH STANDBY ASSISTANCE. BREATHING EVEN AND NONLABORED, TOLERATING O2 VIA NC, FREE FROM ANY S/S OF RESPIRATORY DISTRESS. IV SITE PATENT AND INTACT, FLUSHED WITH NS, FREE FROM ANY S/S OF INFILTRATION OR PHLEBITIS. PLAN OF CARE DISCUSSED WITH THE PATIENT, WHO VERBALIZES UNDERSTANDING REGARDING THE PLAN OF CARE. BED IN LOWEST AND LOCKED POSITION. WILL CONTINUE TO CLOSELY MONITOR
[2017-08-06 20:00] VITALS: BP 113/63
--- NOTE | 2017-08-06 20:02 | NUR ---
ELECTRIC REPAIR SUPERVISOR NOTES NO ACUTE CHANGES NOTED DURING THE SHIFT. DUE MEDS GIVEN. PROVIDE COMFORT AND SAFETY. ENDORSED TO THE PM NURSE FOR CONTINUITY OF CARE.
--- NOTE | 2017-08-06 20:35 | NUR ---
RN NOTES PATIENT ENDORSED TO NURSE SANCHEZ FOR CONTINUITY OF CARE
[2017-08-06] MEDS: ATORVASTATIN 40 MG TABLET PO SCH (21:43)
[2017-08-06] MEDS: ENOXAPARIN SODIUM 40 MG/0.4 ML DISP.SYRIN SQ SCH (21:44)
[2017-08-07] VITALS: BP 132/70
[2017-08-07] MEDS: METOPROLOL TARTRATE 50 MG TABLET PO SCH ×3 (00:08→17:23)
[2017-08-07] MEDS: PIPERACILLIN /TAZOBACTAM 3.375 G in IV D5W 50 ML IV SCH ×3 (00:08→13:30)
[2017-08-07 04:00] VITALS: BP 134/78
[2017-08-07] MEDS: ALBUTEROL FS 2.5 MG/0.5 ML VIAL.NEB NEB SCH ×3 (07:55→23:33)
[2017-08-07] MEDS: IPRATROPIUM NEB FS 0.5 MG/2.5 ML AMPUL.NEB NEB SCH ×3 (07:55→23:33)
[2017-08-07 08:00] VITALS: BP 138/87
--- NOTE | 2017-08-07 08:00 | NUR ---
TELE1/RN AM SHIFT INITIAL NOTES RECEIVED PT AWAKE SITTING IN BED, NO ACUTE RESPIRATORY DISTRESS OR CHANGE OF CONDITION NOTED. PT A/O X 4, PT DENIES ANY SYMPTOMS. ON ROOM AIR, SATURATING @ 94%, LUNG SOUNDS DIMINISHED. ON TELE MONITORING, NOTED A-FIB, A-FLUTTER CONTROLLED, HR 102. IV SITE FLUSHED, PATENT WITH NO S/S OF INFECTION. PT IS COMFORTABLE AT THIS TIME. SCHEDULED AM MEDICATIONS TO BE GIVEN. CL WITHIN REACHED AND SAFETY MAINTAINED. ON GOING MONITORING.
[2017-08-07 08:30] LABS: HEMATOCRIT 54 % (39-51); HEMOGLOBIN 17.5 g/dL (13.5-17.5); MEAN CORPUSCULAR HEMOGLOBIN 32 PG (26.0-33.0); MEAN CORPUSCULAR HGB CONC 33 g/dl (31.0-36.0); MEAN CORPUSCULAR VOLUME 98 fL (80-96); RED BLOOD CELL COUNT(AUTO) 5.46 MIL/uL (4.5-6.0)
[2017-08-07 08:31] LABS: EOSINOPHILS # (AUTO) 0.1 /CMM (0.0-0.7); EOSINOPHILS % (AUTO) 0.5 % (0.0-6.0); LYMPHOCYTES # (AUTO) 0.5 /CMM (0.8-4.8); LYMPHOCYTES % (AUTO) 4.7 % (20.0-44.0); MONOCYTES # (AUTO) 0.6 /CMM (0.1-1.30); MONOCYTES % (AUTO) 5.8 % (2.0-12.0); NEUTROPHILS # (AUTO) 9.8 /CMM (1.8-8.9); PLATELET COUNT (AUTO) 93 /CMM (150-450); RDW COEFFICIENT OF VARIATION 14.3 (11.5-15.0)
[2017-08-07 09:24] LABS: CALCIUM, SERUM 8.6 mg/dL (8.5-10.1); CREATININE 0.9 mg/dL (0.6-1.3); MAGNESIUM 1.9 mg/dL (1.8-2.4); PHOSPHORUS 4.3 mg/dL (2.5-4.9); POTASSIUM 3.7 mmol/L (3.5-5.1)
[2017-08-07] MEDS: methylPREDNISolone SOD SUCC 125 MG/2ML VIAL IV SCH ×2 (10:18→17:23)
[2017-08-07] MEDS: BUMETANIDE (1 MG) 1 MG TABLET PO SCH ×2 (10:19→17:23)
[2017-08-07] MEDS: ASPIRIN 325 MG TABLET PO SCH (10:19)
[2017-08-07] MEDS: GABAPENTIN 100 MG CAPSULE PO SCH ×3 (10:19→17:24)
[2017-08-07] MEDS: DILTIAZEM HCL CD 120 MG PO SCH (10:19)
--- NOTE | 2017-08-07 10:20 | NUR ---
TELE1/RN MD ROUNDS - DR. SKINNER PT SEEN & EXAMINED BY DR. SKINNER. NO NEW ORDERS RECEIVED AT THIS TIME. PER MD PT IS CLEAR FOR DISCHARGE. WILL NOTIFY PRIMARY MD. MONITORING.
[2017-08-07] MEDS ORDERED: IV NS 0.9% 250 ML BAG IV ONE (10:30)
[2017-08-07 10:57] LABS: BAND % (MANUAL) 5 % (0.0-5.0); LYMPHOCYTES % (MANUAL) 5 % (16-48); MONOCYTES % (MANUAL) 7 % (0-11.0); NEUTROPHILS % (MANUAL) 83 (42-76)
[2017-08-07 12:00] VITALS: BP 116/74
[2017-08-07 13:23] LABS: ABG BASE EXCESS 17.5 mmol/L; ABG OXYGEN SATURATION 93.2 % (92.0-98.5); ABG PCO2 77.5 mmHg (35.0-45.0); ABG PH 7.409 (7.350-7.450); ABG PO2 68.1 mmHg (75.0-100.0); AaDO2 47.4 mmHg; COHb 1.6 % (0.5-1.5); MetHb 0.2 % (0.0-1.5); O2Hb 91.5 % (94.0-97.0); SITE, ABG Left Radial; VENT MODE, BG nasal cannula
--- NOTE | 2017-08-07 15:00 | NUR ---
TELE1/RN O2 NEED PT WALK THE UNIT HALLWAY ON ROOM AIR, SATURATING 79-80%, DR. DUNNE MADE AWARE.
[2017-08-07 16:00] VITALS: BP 105/65
--- NOTE | 2017-08-07 19:30 | NUR ---
RN INITIAL NOTES RECEIVED PATIENT IN BED, AWAKE, ALERT AND ORIENTED X4. BREATHING EVEN AND NONLABORED, TOLERATING O2 VIA NC, FREE FROM ANY S/S OF RESPIRATORY DISTRESS. IV SITE PATENT AND INTACT, FLUSHED WITH NS, FREE FROM ANY S/S OF INFILTRATION OR PHLEBITIS. PLAN OF CARE DISCUSSED WITH THE PATIENT, WHO VERBALIZES UNDERSTANDING REGARDING THE PLAN OF CARE. BED IN LOWEST AND LOCKED POSITION. WILL CONTINUE TO CLOSELY MONITOR
--- NOTE | 2017-08-07 19:30 | NUR ---
TELE1/RN AM SHIFT END NOTES NO ACUTE CHANGE OF CONDITION NOTED DURING THE SHIFT. ALL NEEDS MET. PT ENDORSED TO PM NURSE TO CONTINUE CARE. CL WITHIN REACHED AND SAFETY MAINTAINED.
[2017-08-07 20:00] VITALS: BP 124/72
[2017-08-07] MEDS: ATORVASTATIN 40 MG TABLET PO SCH (21:46)
[2017-08-07] MEDS: ENOXAPARIN SODIUM 40 MG/0.4 ML DISP.SYRIN SQ SCH (21:50)
[2017-08-08] MEDS: METOPROLOL TARTRATE 50 MG TABLET PO SCH ×3 (00:40→17:40)
[2017-08-08 04:00] VITALS: BP 129/75
--- NOTE | 2017-08-08 07:00 | NUR ---
RN CLOSING NOTES PATIENT RESTING COMFORTABLY IN BED. WILL ENDORSE THE PATIENT TO THE AM SHIFT NURSE FOR CONTINUITY OF CARE
--- NOTE | 2017-08-08 07:30 | NUR ---
MARKETING PROJECT COORDINATOR AM NOTES RECEIVED PT AWAKE SITTING IN BED, NO ACUTE RESPIRATORY DISTRESS OR CHANGE OF CONDITION NOTED. PT A/O X 4, PT DENIES ANY SYMPTOMS. ON ROOM AIR, 96% O2 SAT, LUNG SOUNDS DIMINISHED. ON TELE MONITORING, NOTED A-FIB, A-FLUTTER CONTROLLED, HR 95. SUKUMAR MIDLINE IV SITE FLUSHED, SITE CLEAR, CARDIAC DIET, AMBULATES, DISCUSSED POC, CALL LIGHT WITHIN REACHED AND SAFETY MAINTAINED. WILL CONTINUE TO MONITOR.
[2017-08-08 07:36] LABS: HEMATOCRIT 52 % (39-51); LYMPHOCYTES # (AUTO) 0.2 /CMM (0.8-4.8); LYMPHOCYTES % (AUTO) 2.7 % (20.0-44.0); MEAN CORPUSCULAR HEMOGLOBIN 32 PG (26.0-33.0); MEAN CORPUSCULAR HGB CONC 32 g/dl (31.0-36.0); MEAN CORPUSCULAR VOLUME 98 fL (80-96); MONOCYTES # (AUTO) 0.3 /CMM (0.1-1.30); MONOCYTES % (AUTO) 3.1 % (2.0-12.0); NEUTROPHILS # (AUTO) 8.5 /CMM (1.8-8.9); NEUTROPHILS % (AUTO) 94.2 % (43.0-81.0); PLATELET COUNT (AUTO) 96 /CMM (150-450); RDW COEFFICIENT OF VARIATION 14.3 (11.5-15.0); RED BLOOD CELL COUNT(AUTO) 5.33 MIL/uL (4.5-6.0); WHITE BLOOD COUNT (AUTO) 9.1 K/uL (4.3-11.0)
[2017-08-08] MEDS: IPRATROPIUM NEB FS 0.5 MG/2.5 ML AMPUL.NEB NEB SCH ×3 (07:55→23:31)
[2017-08-08] MEDS: ALBUTEROL FS 2.5 MG/0.5 ML VIAL.NEB NEB SCH ×3 (07:55→23:31)
[2017-08-08 08:00] VITALS: BP 136/85
[2017-08-08 08:00] LABS: CALCIUM, SERUM 8.5 mg/dL (8.5-10.1); PHOSPHORUS 4.7 mg/dL (2.5-4.9); POTASSIUM 3.6 mmol/L (3.5-5.1)
[2017-08-08] MEDS: ASPIRIN 325 MG TABLET PO SCH (09:20)
[2017-08-08] MEDS: GABAPENTIN 100 MG CAPSULE PO SCH ×3 (09:20→17:38)
[2017-08-08] MEDS: DILTIAZEM HCL CD 120 MG PO SCH (09:20)
[2017-08-08] MEDS: BUMETANIDE (1 MG) 1 MG TABLET PO SCH (09:20)
[2017-08-08] MEDS: ASCORBIC ACID 500 MG TABLET PO SCH (09:20)
[2017-08-08] MEDS: methylPREDNISolone SOD SUCC 125 MG/2ML VIAL IV SCH ×2 (09:21→17:38)
--- NOTE | 2017-08-08 09:30 | NUR ---
RN NOTES ALEX MEDS GIVEN.
[2017-08-08] MEDS ORDERED: acetaZOLAMIDE SODIUM 500 MG/VIAL VIAL IV ONE (10:00)
--- NOTE | 2017-08-08 10:19 | NUR ---
RN NOTES DC TELEMETRY PER DR. GUSTAFSON.
[2017-08-08 16:00] VITALS: BP 126/75
[2017-08-08] MEDS: RIVAROXABAN 10 MG TABLET PO SCH (17:39)
--- NOTE | 2017-08-08 19:17 | NUR ---
RN CLOSING NOTES PT RESTING IN BED COMFORTABLY, NO ACUTE RESPIRATORY DISTRESS OR CHANGE OF CONDITION NOTED. PT A/O X 4, PT DENIES ANY SYMPTOMS. ON 2L 02, ON AND OFF, LUNG SOUNDS DIMINISHED. DENIES SOB, SUKUMAR MIDLINE IV SITE FLUSHED, SITE CLEAR, CARDIAC DIET, AMBULATES, CALL LIGHT WITHIN REACHED AND SAFETY MAINTAINED. ALL NEEDS MET, NO OTHER SIGNIFICANT CHANGE IN CONDITION. WILL ENDORSE TO NEXT SHIFT FOR CHINEDU.
[2017-08-08 20:00] VITALS: BP 125/78
[2017-08-08] MEDS: ATORVASTATIN 40 MG TABLET PO SCH (21:16)
[2017-08-09] MEDS: METOPROLOL TARTRATE 50 MG TABLET PO SCH ×3 (01:42→17:40)
--- NOTE | 2017-08-09 07:52 | NUR ---
RN NOTES: PATIENT RECEIVED ALERT AWAKE OX4. ON 2LPM O2 VIA NC, BREATHING PATTERN REGULAR & UNLABORED. DENIES PAIN & DISCOMFORT. IV CATHETER INTACT, ABLE TO FLUSH WITHOUT DIFFICULTY. SAFETY MEASURES OBSERVED. CALL LIGHT WITHIN REACH. WILL CONTINUE TO MONITOR.
[2017-08-09 08:00] VITALS: BP 136/80
[2017-08-09] MEDS: IPRATROPIUM NEB FS 0.5 MG/2.5 ML AMPUL.NEB NEB SCH ×3 (08:20→22:44)
[2017-08-09] MEDS: ALBUTEROL FS 2.5 MG/0.5 ML VIAL.NEB NEB SCH ×3 (08:20→22:44)
[2017-08-09] MEDS: methylPREDNISolone SOD SUCC 125 MG/2ML VIAL IV SCH ×2 (08:35→17:40)
[2017-08-09] MEDS: BUMETANIDE (1 MG) 1 MG TABLET PO SCH (08:35)
[2017-08-09] MEDS: GABAPENTIN 100 MG CAPSULE PO SCH ×3 (08:36→17:40)
[2017-08-09] MEDS: ASPIRIN 325 MG TABLET PO SCH (08:36)
[2017-08-09] MEDS: DILTIAZEM HCL CD 120 MG PO SCH (08:36)
[2017-08-09] MEDS: ASCORBIC ACID 500 MG TABLET PO SCH (08:37)
[2017-08-09] MEDS ORDERED: PANT40TA4 PO (14:49)
[2017-08-09] MEDS ORDERED: DILT120C62 PO (14:49)
[2017-08-09] MEDS ORDERED: ASPI-1152 PO (14:49)
[2017-08-09] MEDS ORDERED: METO50TA16 PO (14:49)
[2017-08-09] MEDS ORDERED: ALBU1.257 NEB (14:49)
[2017-08-09 16:00] VITALS: BP 129/81
[2017-08-09] MEDS: RIVAROXABAN 10 MG TABLET PO SCH (17:41)
--- NOTE | 2017-08-09 19:00 | NUR ---
RN NOTE: SPOKE WITH ABIGAIL TEST FACILITY ENGINEER STILL WAITING FOR BIPAP ARRANGEMENTS. SAID WILL TALK TO .
--- NOTE | 2017-08-09 19:08 | NUR ---
RN NOTE: RECEIVED ORDERS FOR CONSENT THORACENTESIS BY DR. CORONA. SPOKE WITH SON, WANTS TO TALK TO MD. KELVIN ABERNATHY, SAID WILL CALL SON. NO ACUTE DISTRESS NOTED DURING SHIFT. ' SAFETY MEASURES OBSERVED. CONTINUE ON ASPIRATION PRECAUTIONS. Addendum: 08/09/17 at 1913 by FROY BOOKER RN WRONG PATIENT CHARTING. NOT BELONGS TO THIS PATIENT.
[2017-08-09 20:00] VITALS: BP 108/70
[2017-08-09] MEDS: ATORVASTATIN 40 MG TABLET PO SCH (21:38)
[2017-08-10] MEDS: METOPROLOL TARTRATE 50 MG TABLET PO SCH ×2 (01:54→09:20)
[2017-08-10 04:00] VITALS: BP 133/77
[2017-08-10] MEDS: ALBUTEROL FS 2.5 MG/0.5 ML VIAL.NEB NEB SCH (07:57)
[2017-08-10] MEDS: IPRATROPIUM NEB FS 0.5 MG/2.5 ML AMPUL.NEB NEB SCH (07:57)
[2017-08-10 08:00] VITALS: BP 126/83
[2017-08-10] MEDS: BUMETANIDE (1 MG) 1 MG TABLET PO SCH (09:19)
[2017-08-10] MEDS: GABAPENTIN 100 MG CAPSULE PO SCH ×2 (09:19→13:17)
[2017-08-10] MEDS: DILTIAZEM HCL CD 120 MG PO SCH (09:19)
[2017-08-10] MEDS: ASCORBIC ACID 500 MG TABLET PO SCH (09:19)
[2017-08-10 09:20] VITALS: BP 126/83
[2017-08-10] MEDS: ASPIRIN 325 MG TABLET PO SCH (09:20)
[2017-08-10] MEDS: methylPREDNISolone SOD SUCC 125 MG/2ML VIAL IV SCH (09:20)
== END 2017-08-10 13:57 | disposition left against medical advice (07) | DRG 190 ==
LOC: ER 19:39 → TELE 23:11 → ICU 08-01 14:50 → TELE1 08-03 18:33 → TELE-TD 08-04 00:10 → TELE1 08-04 12:05 → MEDSG1 08-08 11:15
PROVIDERS: ADMIT Internal Medicine; ATTEND Internal Medicine
DX: I21.A1 Myocardial infarction type 2 (principal); N17.0 Acute kidney failure with tubular necrosis; I50.33 Acute on chronic diastolic (congestive) heart failure; E87.2 Acidosis; J15.9 Unspecified bacterial pneumonia; J96.02 Acute respiratory failure with hypercapnia; J96.01 Acute respiratory failure with hypoxia; I13.0 Hypertensive heart and chronic kidney disease with heart failure and stage 1 through stage 4 chronic kidney disease, or unspecified chronic kidney disease; D68.59 Other primary thrombophilia; J44.0 Chronic obstructive pulmonary disease with (acute) lower respiratory infection; E46 Unspecified protein-calorie malnutrition; I48.2 Chronic atrial fibrillation; E11.22 Type 2 diabetes mellitus with diabetic chronic kidney disease; D69.6 Thrombocytopenia, unspecified; D75.1 Secondary polycythemia; E66.2 Morbid (severe) obesity with alveolar hypoventilation; N18.9 Chronic kidney disease, unspecified; I48.91 Unspecified atrial fibrillation; Z79.84 Long term (current) use of oral hypoglycemic drugs; Z79.899 Other long term (current) drug therapy; F17.200 Nicotine dependence, unspecified, uncomplicated; I89.0 Lymphedema, not elsewhere classified; J44.1 Chronic obstructive pulmonary disease with (acute) exacerbation; I87.8 Other specified disorders of veins; Z68.41 Body mass index [BMI] 40.0-44.9, adult; L03.115 Cellulitis of right lower limb; L03.116 Cellulitis of left lower limb; Z79.01 Long term (current) use of anticoagulants
CPT/HCPCS: 36415; 36600; 71045-TC; 74018; 76700-TC; 80048-TC; 80076-TC; 82803-TC; 82962-TC; 83605-TC; 83735-TC; 83880; 84100-TC; 84484-TC; 85025-TC; 85730-TC; 87040-TC; 87081-TC; 93307-TC; 93970-TC; A4216; A4606; J1120; J1650; J1940; J2543; J2930; J3370; J3475; J3490; J7050; J7060; Z7610